=== PATIENT | male | born 1995 | race Hispanic/Latino ===

== ENCOUNTER 2017-05-25 20:58 | Emergency (ER) | payer BC ==
[2017-05-25 21:10] VITALS: TEMP 97.9; BMI 20.2
--- NOTE | 2017-05-25 21:16 | ED PDOC ---
Arrival/HPI - General Time Seen by Provider: 05/25/17 21:03 Historian: Patient - History of Present Illness Narrative History of Present Illness (Text): 05/25/17 21:13 A 21 year old male, who denies any past medical history, presents to the emergency department complaining of right knee pain after mechanical fall prior to arrival. Patient reports he slipped on the stairs and felt a "pop" on the right side of his right knee. Patient denies any other injuries, loss of consciousness, head trauma, headache, dizziness, neck pain, nausea, vomiting, abdominal pain, back pain, chest pain, shortness of breath or any other complaints. PMD: None Time/Duration: Prior to Arrival Context: Slipped Past Medical History - Provider Review Nursing Documentation Reviewed: Yes Family/Social History - Physician Review Nursing Documentation Reviewed: Yes Family/Social History: No Known Family HX Allergies/Home Meds Allergies/Adverse Reactions: Allergies No Known Allergies Allergy (Unverified 05/25/17 21:12) Home Medications: Home Meds Medication Instructions Recorded Confirmed No Known Home Med 05/25/17 05/25/17 Review of Systems - Physician Review All systems were reviewed & negative as marked: Yes - Review of Systems Respiratory: absent: SOB Cardiovascular: absent: Chest Pain Gastrointestinal: absent: Abdominal Pain, Nausea, Vomiting Musculoskeletal: Other (right knee pain). absent: Back Pain, Neck Pain Neurological: absent: Headache, Dizziness Physical Exam Vital Signs Reviewed: Yes Vital Signs Temp Pulse Resp BP Pulse Ox 05/25/17 21:10 97.9 F 87 20 130/70 100 Temperature: Afebrile Blood Pressure: Normal Pulse: Regular Respiratory Rate: Normal Appearance: Positive for: Well-Appearing, Non-Toxic, Comfortable Pain Distress: None Mental Status: Positive for: Alert and Oriented X 3 - Systems Exam Head: Present: Atraumatic, Normocephalic Pupils: Present: PERRL Extroacular Muscles: Present: EOMI Conjunctiva: Present: Normal Mouth: Present: Moist Mucous Membranes Neck: Present: Normal Range of Motion. No: MIDLINE TENDERNESS, Paraspinal Tenderness Respiratory/Chest: Present: Clear to Auscultation, Good Air Exchange. No: Respiratory Distress, Accessory Muscle Use Cardiovascular: Present: Regular Rate and Rhythm, Normal S1, S2. No: Murmurs Abdomen: Present: Normal Bowel Sounds. No: Tenderness, Distention, Peritoneal Signs Back: Present: Normal Inspection. No: Midline Tenderness, Paraspinal Tenderness Upper Extremity: Present: Normal Inspection. No: Cyanosis, Edema Lower Extremity: Present: NORMAL PULSES (good pedial pulses bilaterally), Normal ROM (in right knee; pain of right knee with inversion of ankle. No pain to ankle. ), Tenderness (Tenderness over the lateral side of right knee over the fibular head), Deformity, Neurovascularly Intact, Other (NO tenderness over tibial plateau, abrasions, lacerations; no ankle tenderness or swelling; FROM of Ankle). No: Edema, CALF TENDERNESS, Swelling, Erythema, Temperature Abnormalties Neurological: Present: GCS=15, CN II-XII Intact, Speech Normal Skin: Present: Warm, Dry, Normal Color. No: Rashes Psychiatric: Present: Alert, Oriented x 3, Normal Insight, Normal Concentration Medical Decision Making ED Course and Treatment: 05/25/17 21:13 Impression: A 21 year old male with right knee pain after mechanical fall Differential Diagnosis included but are not limited to: Knee sprain r/o dislocation r/o fracture Plan: -- Right knee xray -- Right tibia fibula xray -- Toradol -- Reassess and disposition Progress Notes: Accession No. : [id number] KNEE RIGHT 2 VIEWS (AP LAT) Exam Date: 05/25/17 IMPRESSION: No fracture or effusion Dictated By: Aileen Stewart MD TIBIA FIBULA RIGHT Exam Date: 05/25/17 IMPRESSION: No fracture or joint effusion Dictated By: Aileen Stewart MD 05/25/17 22:[address] Locke who reviewed the images. He agrees there is effusion in the right knee. I explained to him the clinical exam and that there may be a fibular head dislocation. He recommended a CT imagining of the knee. He recommended then to discharge the patient with crutches, knee immobilizer and non-weight bearing. He will see the patient in the morning at this office. I gave Dr. Locke patient's name and contact information so that he can call him for f/u. Case signed out to Dr. Thakkar to f/u CT, crutches, knee immobilizat and disposition. - RAD Interpretation Radiology Orders: 05/25/17 21:12 KNEE RIGHT 2 VIEWS (AP & LAT) [RAD] Stat TIBIA FIBULA RIGHT [RAD] Stat 05/25/17 22:30 EXT LOWER W/O CONTRAST RIGHT [CT] Stat - Medication Orders Current Medication Orders: Discontinued Medications Ketorolac Tromethamine (Toradol) 60 mg IM STAT STA Stop: 05/25/17 21:16 Last Admin: 05/25/17 21:19 Dose: 60 mg MAR Pain Assessment Document 05/25/17 21:19 CNR (Rec: 05/25/17 21:19 CNR [id number]) Pain Reassessment Is this a pain reassessment? Yes Location Left, Right or Bilateral Right Pain Location Body Site Knee Description Description Constant IM Administration Charges Document 05/25/17 21:19 CNR (Rec: 05/25/17 21:19 CNR [id number]) Injection Site MAR Injection Site Right Gluteus Mat Charges for Administration # of IM Administrations 1 - Scribe Statement The provider has reviewed the documentation as recorded by the Maurizioibvicky Tapia Provider Scribe Attestation: All medical record entries made by the Scribe were at my direction and personally dictated by me. I have reviewed the chart and agree that the record accurately reflects my personal performance of the history, physical exam, medical decision making, and the department course for this patient. I have also personally directed, reviewed, and agree with the discharge instructions and disposition. Disposition/Present on Arrival - Present on Arrival Any Indicators Present on Arrival: No - Disposition Have Diagnosis and Disposition been Completed?: Yes Diagnosis: Knee sprain, Closed traumatic dislocation of head of right fibula Disposition Time: 22:39 Condition: GOOD Additional Instructions: Mr Johnson thank you for letting us take care of you today. Your provider was Dr. Bijan Sanchez. You were treated for Knee Sprain. The emergency medical care you received today was directed at your acute symptoms. If you were prescribed any medication, please fill it and take as directed. It may take several days for your symptoms to resolve. Return to the Emergency Department if your symptoms worsen, do not improve, or if you have any other problems. Please contact your doctor or call one of the physicians/clinics you have been referred to that are listed on the Patient Visit Information form that is included in your discharge packet. Bring any paperwork you were given at discharge with you along with any medications you are taking to your follow up visit. Our treatment cannot replace ongoing medical care by a primary care provider (PCP) outside of the emergency department. Thank you for allowing the [facility] team to be part of your care today. If you had an X-Ray or CT scan: A Radiologist will review the ED reading if any change in treatment is needed we will contact you. If you had a blood, urine, or wound culture: It will take several days for the results, if any change in treatment is needed we will contact you. If you had an STI test: It will take 48 hours for the results. Please call after 1 week if you have not heard back. Referrals: PCP,NO [Primary Care Provider] - Follow up with primary Sosa Walter MD [Staff Provider] - Follow up with primary Forms: [employer] (Icelandic), WORK NOTE
--- NOTE | 2017-05-25 22:16 | RAD ---
EXAM: XR Right Knee, 1 or 2 views EXAM DATE/TIME: 05/25/2017 9:12 PM CLINICAL HISTORY: 21 years old, male; Injury or trauma; Fall; Initial encounter; Blunt trauma; Knee; Right; Additional info: Fall R/O FX TECHNIQUE: Frontal and/or lateral views of the right knee. COMPARISON: DX - TIBIA FIBIA RIGHT 2017-05-25 21:32 FINDINGS: Bones/joints: There is no soft tissue swelling or soft tissue calcification. There are no fractures or dislocations. Bone mineralization is normal. Joint spaces are maintained. Soft tissues: see above IMPRESSION: No fracture or effusion
--- NOTE | 2017-05-25 22:17 | RAD ---
EXAM: XR Right Tibia and Fibula, 2 Views EXAM DATE/TIME: 05/25/2017 9:12 PM CLINICAL HISTORY: 21 years old, male; Injury or trauma; Fall; Initial encounter; Blunt trauma; Knee; Right; Additional info: Fall R/O FX TECHNIQUE: Frontal and lateral views of the right tibia and fibula. COMPARISON: Right knee 05/25/17 FINDINGS: Bones/joints: There is no soft tissue swelling or soft tissue calcification. There are no fractures or dislocations. Bone mineralization is normal. Joint spaces are maintained. There is no effusion in the ankle joint Soft tissues: see above IMPRESSION: No fracture or joint effusion
--- NOTE | 2017-05-25 23:54 | ED PDOC ---
Physical Exam Vital Signs Temp Pulse Resp BP Pulse Ox 05/26/17 00:44 60 18 111/46 L 99 05/25/17 21:10 97.9 F 87 20 130/70 100 Medical Decision Making ED Course and Treatment: 05/25/17 23:00 Case endorsed to me by Dr. Orantes, pending CT Right Lower Extremity as per Dr. Braden Holliday, re-evaluation and disposition. Pt presented for right knee pain after mechanical fall. 05/26/17 00:50 CT Right Lower Extremity shows: Bones/joints: There are no fractures or dislocations. Visualized portions of the femur, tibia, fibula and patella are intact. There are no dislocations. There is no effusion in the suprapatellar bursa. There is no soft tissue swelling or soft tissue calcification Soft tissues: See above. IMPRESSION: No acute osseous abnormality, no joint effusion. - RAD Interpretation Radiology Orders: 05/25/17 21:12 KNEE RIGHT 2 VIEWS (AP & LAT) [RAD] Stat TIBIA FIBULA RIGHT [RAD] Stat 05/25/17 22:30 EXT LOWER W/O CONTRAST RIGHT [CT] Stat - Medication Orders Current Medication Orders: Discontinued Medications Ketorolac Tromethamine (Toradol) 60 mg IM STAT STA Stop: 05/25/17 21:16 Last Admin: 05/25/17 21:19 Dose: 60 mg MAR Pain Assessment Document 05/25/17 21:19 CNR (Rec: 05/25/17 21:19 CNR [id number]) Pain Reassessment Is this a pain reassessment? Yes Location Left, Right or Bilateral Right Pain Location Body Site Knee Description Description Constant IM Administration Charges Document 05/25/17 21:19 CNR (Rec: 05/25/17 21:19 CNR [id number]) Injection Site MAR Injection Site Right Gluteus Mat Charges for Administration # of IM Administrations 1 Disposition/Present on Arrival - Present on Arrival Any Indicators Present on Arrival: No History of DVT/PE: No History of Uncontrolled Diabetes: No Urinary Catheter: No History of Decub. Ulcer: No History Surgical Site Infection Following: None - Disposition Have Diagnosis and Disposition been Completed?: Yes Diagnosis: Knee sprain, Closed traumatic dislocation of head of right fibula Disposition: HOME/ ROUTINE Disposition Time: 01:30 Patient Plan: Discharge Condition: GOOD Additional Instructions: Mr Johnson thank you for letting us take care of you today. Your provider was Dr. Orantes, Dr. Thakkar. You were treated for Knee Sprain. The emergency medical care you received today was directed at your acute symptoms. If you were prescribed any medication, please fill it and take as directed. It may take several days for your symptoms to resolve. Return to the Emergency Department if your symptoms worsen, do not improve, or if you have any other problems. Please contact your doctor or call one of the physicians/clinics you have been referred to that are listed on the Patient Visit Information form that is included in your discharge packet. Bring any paperwork you were given at discharge with you along with any medications you are taking to your follow up visit. Our treatment cannot replace ongoing medical care by a primary care provider (PCP) outside of the emergency department. Thank you for allowing the [facility] team to be part of your care today. If you had an X-Ray or CT scan: A Radiologist will review the ED reading if any change in treatment is needed we will contact you. If you had a blood, urine, or wound culture: It will take several days for the results, if any change in treatment is needed we will contact you. If you had an STI test: It will take 48 hours for the results. Please call after 1 week if you have not heard back. Follow-up with Dr. Hernández, orthopedist, tomorrow as previously instructed. Maintain immobilizer and use crutches until then. Prescriptions: Ibuprofen [Motrin] 600 mg PO Q6 PRN #16 tab PRN Reason: Pain, Moderate (4-7) Referrals: Sosa Walter MD [Staff Provider] - Follow up with primary PCP,NO [Primary Care Provider] - Follow up with primary Forms: [employer] (Vietnamese), WORK NOTE
[2017-05-26 00:45] VITALS: BP 111/46; PULSE 60; RESP 18; O2SAT 99
--- NOTE | 2017-05-26 00:46 | CT ---
EXAM: CT Right Lower Extremity Without Intravenous Contrast EXAM DATE/TIME: 05/25/2017 10:30 PM CLINICAL HISTORY: 21 years old, male; Pain; Knee; Right; Additional info: Right knee pain; Eval knee and tib/fib TECHNIQUE: Axial computed tomography images of the right lower extremity without intravenous contrast. All CT scans at this facility use one or more dose reduction techniques, viz.: automated exposure control; ma/kV adjustment per patient size (including targeted exams where dose is matched to indication; i.e. head); or iterative reconstruction technique. Coronal and sagittal reformatted images were created and reviewed. COMPARISON: DX - KNEE RIGHT 2 VIEWS (AP LAT) 2017-05-25 21:36 FINDINGS: Bones/joints: There are no fractures or dislocations. Visualized portions of the femur, tibia, fibula and patella are intact. There are no dislocations. There is no effusion in the suprapatellar bursa. There is no soft tissue swelling or soft tissue calcification Soft tissues: See above. IMPRESSION: No acute osseous abnormality, no joint effusion
== END 2017-05-26 01:36 | disposition home or self-care (01) ==
LOC: ED 20:58
DX: S83.91XA Sprain of unspecified site of right knee, initial encounter (principal); S83.104A Unspecified dislocation of right knee, initial encounter; W01.0XXA Fall on same level from slipping, tripping and stumbling without subsequent striking against object, initial encounter
CPT/HCPCS: 29530; 73560; 73590; 73700; 96372; 99285; J1885